=== PATIENT | male | born 1975 | race Caucasian/White ===

== ENCOUNTER 2022-04-07 17:21 | Emergency (ER) | payer MEDICAID ==
[~2022-04-07] VITALS: Ht 180.3 cm; Wt 91.0 kg
[~2022-04-07 17:21] MED LIST: IBUP-1985 PO; LEVA15HF4 IH; LORA1TAB PO
[2022-04-07 17:56] LABS: BASOPHILS # (AUTO) 0.1 X10'3 (0-0.2); BASOPHILS % (AUTO) 1.3 % (0-1); EOSINOPHILS # (AUTO) 0.2 X10'3 (0-0.9); HEMATOCRIT 43.6 % (42.0-52.0); HEMOGLOBIN 15.2 g/dl (14.0-17.9); LYMPHOCYTES # (AUTO) 1.2 X10'3 (1.1-4.8); LYMPHOCYTES % (AUTO) 21.7 % (21-51); MEAN CORPUSCULAR HEMOGLOBIN 29.6 PG (27.0-31.0); MEAN CORPUSCULAR HGB CONC 34.9 g/dL (33.0-36.5); MEAN CORPUSCULAR VOLUME 84.7 FL (78-98); MEAN PLATELET VOLUME 6.2 FL (7.4-10.4); MONOCYTES # (AUTO) 0.6 X10'3 (0-0.9); MONOCYTES % (AUTO) 10.4 % (2-12); NEUTROPHILS # (AUTO) 3.6 X10'3 (1.8-7.7); NEUTROPHILS % (AUTO) 63.6 % (42-75); PLATELET COUNT 318 X10'3 (140-440); RED BLOOD COUNT 5.15 X10'6 (4.70-6.10); RED CELL DISTRIBUTION WIDTH 13.3 % (11.5-14.5); WHITE BLOOD COUNT 5.6 X10'3 (4.5-11.0)
[2022-04-07 18:13] LABS: ALANINE AMINOTRANSFERASE 49 U/L (12-78); ALBUMIN 3.8 G/DL (3.4-5.0); ALBUMIN/GLOBULIN RATIO 1.2 (1.1-1.5); ALKALINE PHOSPHATASE 64 IU/L (46-116); ANION GAP 6 (8-16); ASPARTATE AMINO TRANSFERASE 65 U/L (10-37); BILIRUBIN,TOTAL 0.8 MG/DL (0.1-1.0); BLOOD UREA NITROGEN 15 MG/DL (7-18); BUN/CREATININE RATIO 14.6 (5.4-32.0); CHLORIDE 106 MMOL/L (99-107); CREATININE 1.03 MG/DL (0.60-1.10); GLUCOSE 89 MG/DL (70-104); LIPASE 163 U/L (73-393); POTASSIUM 3.8 MMOL/L (3.5-5.1); SODIUM 140 MMOL/L (135-145); TOTAL CARBON DIOXIDE 28.3 MMOL/L (24-32); TOTAL PROTEIN 6.9 G/DL (6.4-8.2); eGFR 78 ML/MIN
[2022-04-07] MEDS ORDERED: HYDROcodone/acetaminophen 10/325mg tab PO ONE (18:20)
[2022-04-07 18:38] LABS: CLARITY,URINE SLIGHTLY CLOUDY (Clear); COLOR,URINE YELLOW (Yellow); GLUCOSE, URINE NEGATIVE (Neg); KETONES,URINE 40 mg/dl (Neg); LEUKOCYTE ESTERASE ,URINE NEGATIVE (Neg); NITRITES, URINE NEGATIVE (Neg); OCCULT BLOOD,URINE NEGATIVE (Neg); PH,URINE 5.5 (4.8-8.0); PROTEIN,URINE NEGATIVE (Neg); UROBILINOGEN,URINE 0.2 E.U/dL (0.2-1.0)
[2022-04-07 18:49] LABS: UA COLLECTION TYPE NON-SPECIFIED
[2022-04-07 18:56] LABS: BACTERIA,URINE FEW /HPF (Neg); RBC,URINE 0-2 /HPF (0-2); SQUAMOUS EPITHELIAL CELL,UR FEW /LPF (FEW); WBC,URINE 0-4 /HPF (0-4)
[2022-04-07 18:57] LABS: CAL OXALATE CRYSTALS FEW /HPF (NEGATIVE)
[2022-04-07 19:18] VITALS: BP 134/71
== END 2022-04-07 19:21 | disposition home or self-care (01) ==
LOC: ER 17:21
DX: R10.31 Right lower quadrant pain (principal); I11.9 Hypertensive heart disease without heart failure; G89.29 Other chronic pain; M54.9 Dorsalgia, unspecified; F20.9 Schizophrenia, unspecified; F31.9 Bipolar disorder, unspecified; F12.10 Cannabis abuse, uncomplicated; Z88.0 Allergy status to penicillin; Z91.018 Allergy to other foods; Z88.5 Allergy status to narcotic agent; Z79.899 Other long term (current) drug therapy
CPT/HCPCS: 36415; 74176; 80053; 81001; 83690; 85025; 99284

== ENCOUNTER 2022-08-27 10:04 | Emergency (ER) | payer MEDICAID | END 2022-08-27 14:39 | disposition left against medical advice (07) | LOC: ER 10:05 | DX: M25.519 Pain in unspecified shoulder (principal); Z53.21 Procedure and treatment not carried out due to patient leaving prior to being seen by health care provider ==

== ENCOUNTER 2023-09-11 13:45 | Outpatient (CLI) | payer MEDICAID | END 2023-09-11 23:59 | disposition home or self-care (01) | LOC: RAD 13:45 | PROVIDERS: ATTEND Nurse Practitioner Family | DX: N28.1 Cyst of kidney, acquired (principal); N17.9 Acute kidney failure, unspecified; N40.0 Benign prostatic hyperplasia without lower urinary tract symptoms; K76.0 Fatty (change of) liver, not elsewhere classified; R16.0 Hepatomegaly, not elsewhere classified | CPT/HCPCS: 76700; 76770 ==

== ENCOUNTER 2024-06-04 09:52 | Outpatient (CLI) | payer MEDICAID | END 2024-06-04 23:59 | disposition home or self-care (01) | LOC: RAD 09:52 | PROVIDERS: ATTEND Family Medicine | DX: S52.612A Displaced fracture of left ulna styloid process, initial encounter for closed fracture (principal); M25.532 Pain in left wrist; M25.562 Pain in left knee; Z98.890 Other specified postprocedural states; X58.XXXA Exposure to other specified factors, initial encounter; Y93.89 Activity, other specified; Y92.89 Other specified places as the place of occurrence of the external cause; Y99.8 Other external cause status | CPT/HCPCS: 73110; 73130; 73564; 73590 ==

== ENCOUNTER 2024-07-15 09:32 | Outpatient (CLI) | payer MEDICAID | END 2024-07-15 23:59 | disposition home or self-care (01) | LOC: RAD 09:32 | PROVIDERS: ATTEND Family Medicine | DX: K76.0 Fatty (change of) liver, not elsewhere classified (principal); N28.1 Cyst of kidney, acquired; Z86.19 Personal history of other infectious and parasitic diseases | CPT/HCPCS: 76700 ==

== ENCOUNTER 2024-08-07 12:33 | Outpatient (CLI) | payer MEDICAID | END 2024-08-07 23:59 | disposition home or self-care (01) | LOC: MRI 12:33 | PROVIDERS: ATTEND Family Medicine | DX: M25.562 Pain in left knee (principal) | CPT/HCPCS: 73721 ==

== ENCOUNTER 2024-11-04 13:08 | Outpatient (CLI) | payer MEDICAID ==
[2024-11-04 13:53] LABS: BASOPHILS # (AUTO) 0.1 X10'3 (0-0.2); BASOPHILS % (AUTO) 0.6 % (0-1); EOSINOPHILS % (AUTO) 0.4 % (0-6); HEMATOCRIT 47.7 % (42.0-52.0); HEMOGLOBIN 16.1 g/dl (14.0-17.9); LYMPHOCYTES # (AUTO) 0.4 X10'3 (1.1-4.8); LYMPHOCYTES % (AUTO) 5.4 % (21-51); MEAN CORPUSCULAR HGB CONC 33.7 g/dL (33.0-36.5); MEAN CORPUSCULAR VOLUME 86.1 FL (78-98); MEAN PLATELET VOLUME 6.7 FL (7.4-10.4); MONOCYTES # (AUTO) 0.1 X10'3 (0-0.9); MONOCYTES % (AUTO) 1.1 % (2-12); NEUTROPHILS # (AUTO) 7.2 X10'3 (1.8-7.7); NEUTROPHILS % (AUTO) 92.5 % (42-75); PLATELET COUNT 314 X10'3 (140-440); RED BLOOD COUNT 5.54 X10'6 (4.70-6.10); RED CELL DISTRIBUTION WIDTH 13.5 % (11.5-14.5); WHITE BLOOD COUNT 7.8 X10'3 (4.5-11.0)
[2024-11-04 14:19] LABS: ALANINE AMINOTRANSFERASE 19 U/L (12-78); ALBUMIN 3.9 G/DL (3.4-5.0); ALBUMIN/GLOBULIN RATIO 1.2 (1.1-1.5); ALKALINE PHOSPHATASE 65 IU/L (46-116); ANION GAP 10 (8-16); ASPARTATE AMINO TRANSFERASE 21 U/L (10-37); BILIRUBIN,TOTAL 0.4 MG/DL (0.1-1.0); BLOOD UREA NITROGEN 20 MG/DL (7-18); BUN/CREATININE RATIO 21.5 (10.0-20.0); CALCIUM 8.7 MG/DL (8.5-10.1); CHLORIDE 105 MMOL/L (99-107); CHOL/HDL RATIO 2.5 (0.00-4.99); CHOLESTEROL 194 MG/DL (0-200); CREATININE 0.93 MG/DL (0.60-1.10); FREE T4 (FREE THYROXINE) 0.85 NG/DL (0.73-1.40); GLUCOSE 119 MG/DL (70-104); HDL CHOLESTEROL 77 MG/DL (35-60); LDL CHOLESTEROL 100 MG/DL (50-100); POTASSIUM 4.5 MMOL/L (3.5-5.1); SODIUM 139 MMOL/L (135-145); THYROID STIMULATING HORMONE 0.77 ulU/ml (0.34-4.50); TOTAL CARBON DIOXIDE 24.1 MMOL/L (24-32); TOTAL PROTEIN 7.1 G/DL (6.4-8.2); TRIGLYCERIDES 54 MG/DL (20-135); eGFR 87 ML/MIN
== END 2024-11-04 23:59 | disposition home or self-care (01) ==
LOC: LAB 13:08
PROVIDERS: ATTEND Family Medicine
DX: N40.0 Benign prostatic hyperplasia without lower urinary tract symptoms (principal); R35.1 Nocturia; Z20.2 Contact with and (suspected) exposure to infections with a predominantly sexual mode of transmission
CPT/HCPCS: 36415; 80053; 80061; 83036; 84153; 84439; 84443; 84681; 85025

== ENCOUNTER 2024-12-01 22:34 | Emergency (ER) | payer MEDICAID ==
[~2024-12-01] VITALS: Ht 180.3 cm; Wt 97.1 kg
[2024-12-01 22:42] VITALS: BP 117/76; PULSE 70; RESP 20; TEMP 98.5; O2SAT 97
--- NOTE | 2024-12-01 22:52 | ELECTROCARDIOGRAPH REPORT ---
[facility] Test Date: 2024-12-01 Test Time: 22:51:08 Pat Name: LAURI CRAIG Department: EMERGENCY ROOM Room: Gender: M [employer] Operator: : [id number] Requested By: SOLIS RUIZ Order Number: [id number] Reading MD: Dr. Lucas Post Measurements Intervals [place] Rate: 63 P: 48 CA: 152 QRS: 62 QRSD: 96 T: 58 QT: 389 QTc: 399 Interpretive Statements Sinus rhythm Electronically Signed On 12-02-2024 1:39:[address] Lucas Post Please click the below link to view image of tracing.
--- NOTE | 2024-12-01 23:21 | RADIOLOGY REPORT ---
CHEST RADIOGRAPH Indication: COUGH Technique: Frontal and lateral view of the chest was obtained Comparison: None FINDINGS: Lines and Tubes: None Lungs: Clear Pleura: No effusion. No pneumothorax. Cardiomediastinal contours: Unremarkable Bones: Unremarkable IMPRESSION: 1. No evidence of acute disease.
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
== END 2024-12-02 00:21 | disposition left against medical advice (07) ==
LOC: ER 22:35
DX: R05.9 Cough, unspecified (principal); I10 Essential (primary) hypertension; F20.9 Schizophrenia, unspecified; F32.A Depression, unspecified; F12.90 Cannabis use, unspecified, uncomplicated; F15.90 Other stimulant use, unspecified, uncomplicated; F17.290 Nicotine dependence, other tobacco product, uncomplicated; Z88.0 Allergy status to penicillin; Z88.5 Allergy status to narcotic agent; Z88.8 Allergy status to other drugs, medicaments and biological substances; Z86.73 Personal history of transient ischemic attack (TIA), and cerebral infarction without residual deficits; Z56.0 Unemployment, unspecified
CPT/HCPCS: 71046; 93005; 99283

== ENCOUNTER 2025-03-16 13:03 | Emergency (ER) | payer MEDICAID ==
[~2025-03-16] VITALS: Ht 180.3 cm; Wt 98.4 kg
[~2025-03-16 13:03] MED LIST changes: -IBUP-1985 PO; +IBUP600T52 PO
[2025-03-16 13:07] VITALS: TEMP 97.5
[2025-03-16 14:15] LABS: MEAN PLATELET VOLUME 6.4 FL (7.4-10.4); RED CELL DISTRIBUTION WIDTH 13.2 % (11.5-14.5)
[2025-03-16 14:41] LABS: CREATININE 0.90 MG/DL (0.60-1.10); TOTAL CARBON DIOXIDE 27.1 MMOL/L (24-32); eCRCL 107 ML/MIN; eGFR 90 ML/MIN
[2025-03-16 15:00] VITALS: BP 127/90; PULSE 77; O2SAT 99
[2025-03-16 15:02] VITALS: RESP 16
[2025-03-16] MEDS ORDERED: LISI10TA27 PO (15:08)
[2025-03-16] MEDS ORDERED: HYDR-3965 PO (15:08)
[2025-03-16] MEDS ORDERED: FINA5TAB11 PO (15:08)
[2025-03-16] MEDS ORDERED: ATOR20TA66 PO (15:08)
[2025-03-16] MEDS ORDERED: TAMS-55 (15:08)
[2025-03-16 15:30] LABS: LEUKOCYTE ESTERASE ,URINE NEGATIVE (Neg); OCCULT BLOOD,URINE TRACE-INTACT (Neg)
[2025-03-16 15:33] LABS: UA COLLECTION TYPE CLN CATCH MIDSTREAM
[2025-03-16 15:34] LABS: NITRITES, URINE NEGATIVE (Neg)
[2025-03-16 15:36] LABS: MUCUS STRANDS NONE SEEN /LPF (Neg); SQUAMOUS EPITHELIAL CELL,UR NONE SEEN /LPF (FEW)
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
[2025-03-17 09:53] LABS: C DIFF ANTIGEN NEGATIVE (NEGATIVE); C DIFF SPECIMEN=DIARRHEA? ACCEPTABLE; C DIFFICILE TOXINS A&B NEGATIVE (Neg)
== END 2025-03-16 18:48 | disposition home or self-care (01) ==
LOC: ER 13:04
DX: R19.7 Diarrhea, unspecified (principal); K40.90 Unilateral inguinal hernia, without obstruction or gangrene, not specified as recurrent; F31.9 Bipolar disorder, unspecified; G89.29 Other chronic pain; I10 Essential (primary) hypertension; F20.9 Schizophrenia, unspecified; F17.290 Nicotine dependence, other tobacco product, uncomplicated; F12.90 Cannabis use, unspecified, uncomplicated; Z86.19 Personal history of other infectious and parasitic diseases; Z86.73 Personal history of transient ischemic attack (TIA), and cerebral infarction without residual deficits; Z88.0 Allergy status to penicillin; Z88.5 Allergy status to narcotic agent; Z88.8 Allergy status to other drugs, medicaments and biological substances; Z79.899 Other long term (current) drug therapy; Z56.0 Unemployment, unspecified; Z72.89 Other problems related to lifestyle
CPT/HCPCS: 36415; 80053; 81001; 83690; 85025; 87045; 87046; 87324; 87449; 89055; 99283

== ENCOUNTER 2025-04-03 08:23 | Outpatient (CLI) | payer MEDICAID ==
[~2025-04-03 08:23] MED LIST changes: +ATOR20TA66 PO; +FINA5TAB11 PO; +HYDR-3965 PO; -IBUP600T52 PO; -LEVA15HF4 IH; +LISI10TA27 PO; -LORA1TAB PO; +TAMS-55
--- NOTE | 2025-04-03 09:41 | RADIOLOGY REPORT ---
Technique: Real-time ultrasound imaging of the abdomen was performed with grayscale and color Doppler. Indication: GENERALIZED ABDOMINAL PAIN Comparison: US ULTRASOUND OF ABDOMEN on DOS: 07/15/24, US ULTRASOUND OF ABDOMEN on DOS: 09/11/23 Findings: Liver measures 19 cm. It is increased in echogenicity and echotexture without focal mass. Portal vein is normal in caliber and demonstrates normal hepatopetal flow. Gallbladder demonstrates no evidence for cholelithiasis. There is no pericholecystic fluid. The wall thickness is normal. The common bile duct measures 3 mm. No intrahepatic biliary ductal dilatation. The right kidney measures 10.4 cm. The left kidney measures 9.7 cm. No hydronephrosis or sonographic evidence of nephrolithiasis. There is a 1.8 cm right renal cyst. 1.4 cm left renal cyst. The visualized portion of the pancreas is unremarkable. Spleen measures 11.7 cm. The visualized portion of the IVC is unremarkable. Impression: Echogenic liver which can be seen with hepatic steatosis, cirrhosis. Hepatomegaly
== END 2025-04-03 23:59 | disposition home or self-care (01) ==
LOC: RAD 08:23
PROVIDERS: ATTEND Family Medicine
DX: N28.1 Cyst of kidney, acquired (principal); R16.0 Hepatomegaly, not elsewhere classified; R10.84 Generalized abdominal pain
CPT/HCPCS: 76700

== ENCOUNTER 2025-06-02 09:03 | Outpatient (CLI) | payer MEDICAID ==
--- NOTE | 2025-06-02 13:17 | RADIOLOGY REPORT ---
EXAM: DI WRIST,LIMITED (AP/LAT) CLINICAL INDICATION: BILATERAL WRIST PAIN TECHNIQUE: DI WRIST,LIMITED (AP/LAT), 3v COMPARISON: DI WRIST, COMPLETE (3VW MIN) on DOS: 06/04/24, DI HAND, COMPLETE (3VW MIN) on DOS: 06/04/24 FINDINGS/IMPRESSION: There is no evidence of acute fracture or dislocation. Postsurgical changes are visualized in the left scaphoid bone. The visualized joint space is well maintained. The alignment is anatomical. There is no radiopaque foreign body.
--- NOTE | 2025-06-02 14:18 | RADIOLOGY REPORT ---
EXAM: DI WRIST,LIMITED (AP/LAT) REASON FOR EXAM: BILATERAL WRIST PAIN TECHNIQUE: PA, lateral, and oblique views of the right wrist are submitted for review. COMPARISON: DI WRIST,LIMITED (AP/LAT) on DOS: 06/02/25, DI WRIST, COMPLETE (3VW MIN) on DOS: 06/04/24, DI HAND, COMPLETE (3VW MIN) on DOS: 06/04/24 FINDINGS: The bones demonstrate normal mineralization. No acute fracture or dislocation is identified. The joint spaces are maintained. There is chronic appearing deformity of the distal aspect of the scaphoid. There is no widening of the scapholunate interval. The soft tissues are within normal limits. IMPRESSION: No acute fracture or dislocation. Chronic appearing deformity of the distal aspect of the scaphoid.
== END 2025-06-02 23:59 | disposition home or self-care (01) ==
LOC: RAD 09:03
PROVIDERS: ATTEND Family Medicine
DX: M25.532 Pain in left wrist (principal); M25.531 Pain in right wrist; M95.8 Other specified acquired deformities of musculoskeletal system; Z98.890 Other specified postprocedural states
CPT/HCPCS: 73100